=== PATIENT | female | born 1995 | race Hispanic/Latino ===

== ENCOUNTER 2017-11-12 15:12 | Inpatient (IN) | payer OTHER ==
[2017-11-13] MEDS ORDERED: MIDAZOLAM HCL 2 MG/2 ML INJ IV PRN (04:38)
[2017-11-13] MEDS ORDERED: METHYLERGONOVINE 0.2MG/ML AMP IM PRN (04:38)
[2017-11-13] MEDS ORDERED: PROMETHAZINE 25 MG/ML VIAL IM PRN (04:38)
[2017-11-13] MEDS ORDERED: BUTORPHANOL 1 MG/ML INJ IV PRN (04:38)
[2017-11-13] MEDS ORDERED: MEPERIDINE HCL 25 MG/0.5 ML IV PRN (04:38)
[2017-11-13] MEDS ORDERED: Ringers Lactate 1,000 ML IV PRN (04:38)
[2017-11-13] MEDS ORDERED: CARBOPROST TROME 250 MCG/ML IM PRN (04:38)
[2017-11-13 04:50] LABS: RPR Titer ND
[2017-11-13 04:56] LABS: Absolute Lymphocytes (CBC) 1.6 K/uL (0.7-4.9); Absolute Monocytes 0.5 K/uL (0.1-1.3); Absolute Neutrophil 4.7 K/uL (1.8-8.0); Basophils % 0.3 % (0-1.3); Eosinophils % 1.1 % (0-4.4); Hematocrit 31.6 % (36.0-45.0); Lymphocytes % 23.6 % (15.3-44.8); MCH 29.1 pg (27.0-35.0); MPV 8.5 fL (7.6-11.3); Monocytes % 6.9 % (3.3-12.3); RBC Red Blood Cell Count 3.67 M/uL (3.86-4.86)
[2017-11-13 05:00] VITALS: BMI 27.3
[2017-11-13] MEDS ORDERED: Ringers Lactate 1,000 ML IV SCH (05:00)
[2017-11-13] MEDS ORDERED: OXYTOCIN/LR 20 UNIT/1,000 ML BAG IV SCH ×2 (05:30→12:00)
[2017-11-13 06:17] LABS: Urine Appearance CLEAR; Urine Bilirubin NEGATIVE (NEG); Urine Blood NEGATIVE (NEG); Urine Color YELLOW; Urine Glucose NEGATIVE (NEG); Urine Protein NEGATIVE (NEG); Urine Specific Gravity >=1.030 (1.005-1.030); Urine pH 6.5 (5.0-7.0)
[2017-11-13 06:18] LABS: Urine Microscopic Reflex ORDER UMIC
[2017-11-13 06:40] LABS: Urine Bacteria 20-50 /HPF (<20); Urine Culture Reflex Order REFLEXED; Urine Mucus HEAVY /HPF (NONE SEEN); Urine RBC NONE SEEN /HPF (NONE SEEN)
[2017-11-13] MEDS ORDERED: LIDOCAINE 2% INJ, 20 mL 20 ML ONE (07:35)
[2017-11-13] MEDS ORDERED: BISACODYL 10 MG RECTAL SUPP RECT PRN (11:11)
[2017-11-13] MEDS ORDERED: ACETAMINOPHEN 500 MG TAB PO PRN (11:11)
[2017-11-13] MEDS ORDERED: DIPHENHYDRAMINE 25 MG TAB/CAP PO PRN (11:11)
[2017-11-13] MEDS ORDERED: DOCUSATE NA/SENNA CONC 1 TAB PO PRN (11:11)
[2017-11-13] MEDS ORDERED: Oxycodone HCl/Acetaminophen 1 TAB TAB PO PRN ×2 (11:11)
[2017-11-13] MEDS ORDERED: CEFAZOLIN/SWI 1gm 1 GM/10 ML SYR ONE (11:24)
--- NOTE | 2017-11-13 11:40 | PREOPHP ---
Date of Admission: 11/13/2017 This is a 22-year-old, 4, para 3, at 39 weeks and 4 days. The patient is now 4.5 cm, slightl y posterior, 70% effaced, aubrey regularly. FHTs normal, reactive. Rupture of membranes, clear fluid. The patient has delivered all of her other children naturally and she says she will do the s cathie this time. Anticipate rapid delivery once progress starts to be made. The patient requested tub al, was turned down by [facility]. We will try to get her connected with [facility] in the period. Talia fair has already signed her permit. Full admission and labor talk given. SILVA/SILVINA Voice ID: [id number]
--- NOTE | 2017-11-13 14:16 | PN ---
Subjective: Patient is aubrey regularly now. Baby looks good. Vital signs are all stable. Sh e is now about 6 cm, 70 to 80% effaced, vertex, still -1 station. Doing quite well with her breathin g techniques, anticipate more rapid progress soon. SILVA/SILVINA Voice ID: [id number] Report ID: [id number]
[2017-11-13 21:40] LABS: RPR (Rapid Plasma Reagin) NON-REACT (NON-REACT)
--- NOTE | 2017-11-13 21:55 | OP ---
Surgeon: Cruz Reina MD A 22-year-old, 4, para 3, 39 weeks 4 days. Two and half to 3 cm on admission. Rupture of me mbranes at 4 cm, clear fluid. Patient received 1 mg of Stadol during the labor, otherwise Lamaze shari athing techniques. Second stage of approximately 20-30 minutes. Spontaneous vaginal delivery of an estimated 8 pounds plus female, Apgars 9 and 9. Small first-degree laceration, somewhat irregular, r epaired with 2-0 chromic after local infiltration. Also 1-2 stitches of 3-0 chromic interrupted. Sc hultze delivery of the placenta, which was inspected and noted to be intact and normal. A 350 cc blo od loss. Rh positive, immune to Rubella. The patient had a bowel movement at the time of delivery a nd we will give her 1 g of Ancef for prophylaxis because she had to be catheterized also as the bladd er was obstructing delivery of the baby, tolerated all procedures well. Final Diagnoses: 1.Term intrauterine at 39 weeks 4 days. 2.Vaginal delivery. SILVA/SILVINA Voice ID: [id number] Report ID: [id number]
[2017-11-13] MEDS: IBUPROFEN 200 MG TAB PO PRN (22:00)
[2017-11-14] MEDS: IBUPROFEN 200 MG TAB PO PRN (04:15)
[2017-11-14] MEDS ORDERED: IBUPROFEN 400 MG TAB ONE (04:27)
[2017-11-14 15:03] VITALS: BP 110/66; TEMP 96.9
--- NOTE | 2017-11-15 05:54 | DS ---
Date of Discharge: 11/14/2017 A 22-year-old, 4, para 3, 39 weeks 4 days. Delivered a 7 pounds and 13 ounce female. Apgars 9 and 9. Small first-degree laceration repaired with 2-0 chromic and 3-0 chromic 1 to 2 interrupted sutures. Blood loss 350 cc. Placenta delivered Saie, inspected, noted to be intact and normal. Rh positive, immune to Rubella. Negative beta strep screen. The patient was catheterized during t he labor to help her push; therefore, she was given 1 g of Ancef . The patient is afebrile , ambulating and voiding lochia is normal. She has had all of her immunizations including Tdap durin g the . She will be dismissed later this morning to report back to my office in 6 weeks for followup, to report any temperature elevation of 100 degrees or greater, severe pain, heavy bleeding , or any other type of abnormalities. Dismissed with tramadol for analgesia, although she may not ge t the prescription filled. She may prefer to take Motrin instead. Final Diagnoses: 1.Term intrauterine at 39 weeks 4 days. 2.Vaginal delivery. SILVA/SILVINA Voice ID: [id number] Report ID: [id number]
[2017-11-15 20:18] LABS: HBsAG Nonreactive (Nonreactive)
== END 2017-11-14 14:00 | disposition home or self-care (01) | DRG 775 ==
LOC: 2ND-WC 11-13 03:56
PROVIDERS: ADMIT Specialist; ATTEND Specialist
PROC: 10907ZC Drainage of Amniotic Fluid, Therapeutic from Products of Conception, Via Natural or Artificial Opening (ICD-10-PCS; principal; 2017-11-13)
PROC: 10E0XZZ Delivery of Products of Conception, External Approach (ICD-10-PCS; 2017-11-13)
PROC: 0HQ9XZZ Repair Perineum Skin, External Approach (ICD-10-PCS; 2017-11-13)
DX: O70.0 First degree perineal laceration during delivery (principal); Z3A.39 39 weeks gestation of pregnancy; Z37.0 Single live birth; Z28.21 Immunization not carried out because of patient refusal
CPT/HCPCS: 36415; 81003; 81015; 85025; 86592; 86901; 87086; 87088; 87340; J0595; J0690; J2175; J2210; J2590

== ENCOUNTER 2018-05-31 01:24 | Emergency (ER) | payer OTHER, SELFPAY ==
[2018-05-31 02:04] LABS: Absolute Monocytes 0.6 K/uL (0.1-1.3); Absolute Neutrophil 8.2 K/uL (1.8-8.0); Basophils % 0.3 % (0-1.3); Eosinophils % 1.9 % (0-4.4); Lymphocytes % 9.6 % (15.3-44.8); MCH 31.2 pg (27.0-35.0); MCV 90.3 fL (80-100); MPV 8.1 fL (7.6-11.3); Monocytes % 5.9 % (3.3-12.3); RBC Red Blood Cell Count 4.21 M/uL (3.86-4.86)
[2018-05-31] MEDS ORDERED: ONDANSETRON 4 MG/2 ML VIAL ONE (02:08)
[2018-05-31] MEDS ORDERED: MORPHINE 4 MG/ML SYR ONE (02:08)
[2018-05-31 02:16] LABS: Urine Bacteria >50 /HPF (<20); Urine Culture Reflex Order REFLEXED; Urine Mucus HEAVY /HPF (NONE SEEN); Urine RBC NONE SEEN /HPF (NONE SEEN)
[2018-05-31 02:19] LABS: Albumin 3.9 g/dL (3.4-5.0); Bilirubin Direct 0.2 mg/dL (0-0.2); Bilirubin Total 0.5 mg/dL (0.2-1.0); Potassium 3.5 mmol/L (3.5-5.1); Protein, Total 7.3 g/dL (6.4-8.2)
[2018-05-31 03:52] LABS: Urine Blood NEGATIVE (NEG); Urine Glucose NEGATIVE (NEG); Urine Protein 1+ (NEG); Urine Specific Gravity 1.015 (1.005-1.030); Urine pH 8.5 (5.0-7.0)
[2018-05-31] MEDS ORDERED: KETOROLAC 30 MG/ML INJ ONE (04:36)
--- NOTE | 2018-05-31 04:55 | ER ---
Nurse's Notes [facility] Name: Anisa Mack Age: 22 yrs Sex: Female : 1995 Arrival Date: 05/31/2018 Time: 01:28 Bed 7 Private MD: Diagnosis: Acute Right lower quadrant pain;right side corpus luteum cyst Presentation: 05/31 01:35 Presenting complaint: Patient states: she is having right lower abdominal pain since bb approx 1999 last night denies vomiting or diarrhea, pain is constant and is now 10/10. Transition of care: patient was not received from another setting of care. Onset of symptoms was May 30, 2018. Risk Assessment: Do you want to hurt yourself or someone else? Patient reports no desire to harm self or others. Initial Sepsis Screen: Does the patient meet any 2 criteria? No. Patient's initial sepsis screen is negative. Does the patient have a suspected source of infection? No. Patient's initial sepsis screen is negative. Care prior to arrival: None. 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 - Social history:: Smoking status: Patient/guardian denies using tobacco, Patient uses alcohol, occasionally. Patient/guardian denies using street drugs. - Ebola Screening: : No symptoms or risks identified at this time. Screenin:08 Abuse screen: Denies threats or abuse. Denies injuries from another. Nutritional ak1 screening: No deficits noted. Tuberculosis screening: No symptoms or risk factors identified. Fall Risk None identified. Assessment: 02:08 General: Appears uncomfortable, slender, Behavior is calm, cooperative. Pain: Complains ak1 of pain in right lower quadrant. Neuro: No deficits noted. Cardiovascular: No deficits noted. Respiratory: No deficits noted. GI: Abdomen is flat, non-distended, Bowel sounds present X 4 quads. Abdomen is tender to palpation in right lower quadrant Guarding noted in right lower quadrant. : No signs and/or symptoms were reported regarding the genitourinary system. EENT: No signs and/or symptoms were reported regarding the EENT system. Derm: No signs and/or symptoms reported regarding the dermatologic system. Musculoskeletal: No signs and/or symptoms reported regarding the musculoskeletal system. 03:15 Reassessment: Patient appears in no apparent distress at this time. Patient and/or ak1 family updated on plan of care and expected duration. Pain level reassessed. pt waiting for CT results. pt waiting for US. 04:05 Reassessment: Patient appears in no apparent distress at this time. Patient and/or ak1 family updated on plan of care and expected duration. Pain level reassessed. pt returned from US. Vital Signs: 01:37 BP 121 / 69; Pulse 107; Resp 18 S; Temp 98.9(O); Pulse Ox 100% on R/A; Weight 57.61 kg bb (R); Height 5 ft. 3 in. (160.02 cm) (R); Pain 10/10; 02:21 BP 116 / 70; Pulse 98; Resp 18; Pulse Ox 99% on R/A; ak1 04:39 BP 97 / 51; Pulse 85; Resp 16; Pulse Ox 97% on R/A; ak1 01:37 Body Mass Index 22.50 (57.61 kg, 160.02 cm) ED Course: 01:28 Patient arrived in ED. ag3 01:29 Paul Loredo PA is PHCP. cp 01:29 Nils Childs MD is Attending Physician. cp 01:37 Triage completed. bb 01:37 Arm band placed on Patient placed in an exam room, on a stretcher, on pulse oximetry. bb Family accompanied patient. 01:49 Rosa Fontenot, RN is Primary Nurse. ak1 01:54 Inserted saline lock: 20 gauge in right antecubital area, using aseptic technique. jd3 Blood collected. 02:09 Radiology exam delayed due to lab results not completed at this time. (BUN/Creatinine). jg6 02:10 Patient has correct armband on for positive identification. Bed in low position. Call ak1 light in reach. Side rails up X 1. Pulse ox on. NIBP on. 02:[address] via wheelchair. kw1 02:47 CT Abd/Pelvis - W/Contrast In Process Unspecified. EDMS 02:48 CT completed. Patient tolerated procedure well. Patient moved back from CT. kw1 03:56 US Transvaginal Study (Probe) In Process Unspecified. EDMS 03:58 Patient moved back from ultrasound. zina 04:32 No provider procedures requiring assistance completed. ak1 05:03 IV discontinued, intact, bleeding controlled, No redness/swelling at site. Pressure ak1 dressing applied. Administered Medications: 02:07 Drug: Zofran 4 mg Route: IVP; Site: right antecubital; jd3 04:32 Follow up: Response: No adverse reaction ak1 02:09 Drug: morphine 2 mg Route: IVP; Site: right antecubital; jd3 04:31 Follow up: Response: No adverse reaction ak1 04:31 Drug: TORadol 30 mg Route: IVP; Site: right antecubital; ak1 04:55 Follow up: Response: No adverse reaction ak1 05:02 Drug: Rocephin - (cefTRIAXone) 1 grams Route: IVPB; Infused Over: 30 mins; Site: right ak1 antecubital; 05:02 Follow up: IV Status: Completed infusion ak1 Outcome: 04:55 Discharge ordered by . ernie 05:03 Discharged to home ambulatory, with family. ak1 05:03 Condition: good 05:05 Discharge instructions given to patient, family, Instructed on discharge instructions, ak1 follow up and referral plans. medication usage, Demonstrated understanding of instructions, follow-up care, medications, Prescriptions given X 2. 05:08 Patient left the ED. ak1 Signatures: Dispatcher [employer] EDChar Ramey RN RN bb Krenek, Amber, RN RN mc1 Paul Loredo PA PA cp Dupre, Jacques jd Appiah, William, MD MD wa Davies, Jonathon, RN RN Kajal Castillo1 Nichol Apodaca6 Patricia Millan3
--- NOTE | 2018-05-31 04:56 | EDPHYS ---
Physician Documentation [facility] Name: Anisa Mack Age: 22 yrs Sex: Female : 1995 Arrival Date: 05/31/2018 Time: 01:28 Bed 7 Private MD: ED Physician Nils Childs HPI: 05/31 01:38 This 22 yrs old Female presents to ER via Ambulatory with complaints of cp Abdominal Pain. 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 - Social history:: Smoking status: Patient/guardian denies using tobacco, Patient uses alcohol, occasionally. Patient/guardian denies using street drugs. - Ebola Screening: : No symptoms or risks identified at this time. ROS: 01:45 Constitutional: Negative for body aches, chills, fever, poor PO intake. cp 01:45 Eyes: Negative for injury, pain, redness, and discharge. cp 01:45 ENT: Negative for drainage from ear(s), ear pain, sore throat, difficulty swallowing, difficulty handling secretions. 01:45 Cardiovascular: Negative for chest pain, palpitations. 01:45 Respiratory: Negative for cough, shortness of breath, wheezing. 01:45 Abdomen/GI: Positive for abdominal pain, of the right lower quadrant, Negative for vomiting, diarrhea, constipation, black/tarry stool, rectal bleeding. 01:45 Back: Negative for pain at rest, pain with movement. 01:45 : Negative for urinary symptoms, vaginal bleeding, vaginal discharge. 01:45 Skin: Negative for cellulitis, rash. 01:45 All other systems are negative. Exam: 01:50 Constitutional: The patient appears in no acute distress, alert, awake, non-toxic, well cp developed, well nourished, uncomfortable. 01:50 Head/Face: Normocephalic, atraumatic. cp 01:50 Eyes: Periorbital structures: appear normal, Conjunctiva: normal, no exudate, no injection, Sclera: no appreciated abnormality, Lids and lashes: appear normal, bilaterally. 01:50 ENT: External ear(s): are unremarkable, Nose: is normal, Mouth: Lips: moist, Oral mucosa: pink and intact, moist, Posterior pharynx: is normal, airway is patent, no erythema, no exudate, Voice: is normal. 01:50 Neck: ROM/movement: is normal, is supple, without pain, no range of motions limitations, no nuchal rigidity. 01:50 Chest/axilla: Inspection: normal, Palpation: is normal, no crepitus, no tenderness. 01:50 Cardiovascular: Rate: tachycardic, Rhythm: regular. 01:50 Respiratory: the patient does not display signs of respiratory distress, Respirations: normal, no use of accessory muscles, no retractions, no splinting, no tachypnea, labored breathing, is not present, Breath sounds: are clear throughout, no decreased breath sounds, no stridor, no wheezing. 01:50 Abdomen/GI: Inspection: abdomen appears normal, Bowel sounds: active, all quadrants, Palpation: soft, in all quadrants, severe abdominal tenderness, in the right lower quadrant, voluntary guarding, is elicited in the right lower quadrant. 01:50 Back: CVA tenderness, is absent. 01:50 Skin: cellulitis, is not appreciated, no rash present. 01:50 Neuro: Orientation: to person, place \T\ time. Mentation: is normal, Cerebellar function: is grossly normal, Motor: moves all fours, strength is normal. Vital Signs: 01:37 BP 121 / 69; Pulse 107; Resp 18 S; Temp 98.9(O); Pulse Ox 100% on R/A; Weight 57.61 kg bb (R); Height 5 ft. 3 in. (160.02 cm) (R); Pain 10/10; 02:21 BP 116 / 70; Pulse 98; Resp 18; Pulse Ox 99% on R/A; ak1 04:39 BP 97 / 51; Pulse 85; Resp 16; Pulse Ox 97% on R/A; ak1 01:37 Body Mass Index 22.50 (57.61 kg, 160.02 cm) bb MDM: 01:29 Patient medically screened. cp 02:00 Differential diagnosis: appendicitis, Ectopic , Ovarian Torsion, Pelvic cp Inflammatory Disease, Pyelonephritis, Tubal Ovarian Abcess, Ureterolithiasis, urinary tract infection. 05/31 01:41 Order name: Basic Metabolic Panel; Complete Time: 04:26 cp 05/31 01:41 Order name: CBC with Diff; Complete Time: 04:26 cp 05/31 01:41 Order name: Creatinine for Radiology; Complete Time: 04:26 cp 05/31 01:41 Order name: Hepatic Function; Complete Time: 04:26 cp 05/31 01:41 Order name: Lipase; Complete Time: 04:26 cp 05/31 01:41 Order name: Urine Microscopic Only; Complete Time: 04:26 cp 05/31 01:41 Order name: US Transvaginal Study (Probe) cp 05/31 01:49 Order name: CT Abd/Pelvis - W/Contrast cp 05/31 02:17 Order name: Urine Culture EDMS 05/31 02:30 Order name: Urine Dipstick--Ancillary (enter results); Complete Time: 04:26 ms 05/31 02:30 Order name: Urine --Ancillary (enter results); Complete Time: 04:26 ms 05/31 01:41 Order name: IV Saline Lock; Complete Time: 01:58 cp 05/31 01:41 Order name: Labs collected and sent; Complete Time: 01:58 cp 05/31 01:41 Order name: Urine Dipstick-Ancillary (obtain specimen); Complete Time: 02:08 cp 05/31 01:41 Order name: Urine Test (obtain specimen); Complete Time: 02:08 cp Administered Medications: 02:07 Drug: Zofran 4 mg Route: IVP; Site: right antecubital; jd3 04:32 Follow up: Response: No adverse reaction ak1 02:09 Drug: morphine 2 mg Route: IVP; Site: right antecubital; jd3 04:31 Follow up: Response: No adverse reaction ak1 04:31 Drug: TORadol 30 mg Route: IVP; Site: right antecubital; ak1 04:55 Follow up: Response: No adverse reaction ak1 05:02 Drug: Rocephin - (cefTRIAXone) 1 grams Route: IVPB; Infused Over: 30 mins; Site: right ak1 antecubital; 05:02 Follow up: IV Status: Completed infusion ak1 Disposition: 14:49 Co-signature as Attending Physician, Nils Childs MD I agree with the assessment and wa plan of care. Disposition: 05/31/18 04:55 Discharged to Home. Impression: Acute Right lower quadrant pain, right side corpus luteum cyst. - Condition is Stable. - Discharge Instructions: Abdominal Pain, Adult, Athf-fe-Mxyq, Ovarian Cyst, [id number]-Pllw. - Prescriptions for Ibuprofen 600 mg Oral Tablet - take 1 tablet by ORAL route every 6 hours As needed take with food; 30 tablet. senna 8.6 mg Oral tablet - take 2 tablet by ORAL route once daily for constipation; 8 tablet. - Medication Reconciliation Form, Thank You Letter, Antibiotic Education, Prescription Opioid Use form. - Follow up: Private Physician; When: 2 - 3 days; Reason: Recheck today's complaints. - Problem is new. - Symptoms have improved. - Notes: follow up with your doctor for reassessment if worsening. take medication as prescribed Signatures: Dispatcher [employer] EDMS Char Malave RN RN bb Krenek, Amber, RN RN ak1 Paul Loredo PA PA Nils Randall MD MD wa Davies, Jonathon, RN RN jd3 Corrections: (The following items were deleted from the chart) 02:34 05/30 01:45 Constitutional: Negative for body aches, chills, fever, poor PO intake, cp cp 05/31 02:34 05/30 01:45 Eyes: Negative for injury, pain, redness, and discharge, cp cp 05/31 02:34 05/30 01:45 ENT: Negative for drainage from ear(s), ear pain, sore throat, difficulty cp swallowing, difficulty handling secretions, cp 05/31 02:34 05/30 01:45 Cardiovascular: Negative for chest pain, edema, palpitations, cp cp 05/31 02:34 05/30 01:45 Respiratory: Negative for cough, shortness of breath, wheezing, cp cp 05/31 02:34 10 01:45 Abdomen/GI: Positive for abdominal pain, Negative for vomiting, diarrhea, cp constipation, black/tarry stool, rectal bleeding, cp 05/31 02:34 05/30 01:45 : Negative for hematuria, flank pain, vaginal bleeding, vaginal cp discharge, cp 05/31 02:34 05/30 01:45 Skin: Negative for cellulitis, rash, cp cp 05/31 05:08 04:55 05/31/2018 04:55 Discharged to Home. Impression: Acute Right lower quadrant pain; ak1 right side corpus luteum cyst. Condition is Stable. Forms are Medication Reconciliation Form, Thank You Letter, Antibiotic Education, Prescription Opioid Use. Follow up: Private Physician; When: 2 - 3 days; Reason: Recheck today's complaints. Problem is new. Symptoms have improved. wa
[2018-05-31] MEDS ORDERED: CEFTRIAXONE/SWI 1gm 1 GM/10 ML SYR ONE (05:05)
[2018-05-31 05:12] VITALS: TEMP 98.9
[2018-05-31 05:14] VITALS: BP 97/51; O2SAT 97
--- NOTE | 2018-05-31 08:54 | RAD REPORT ---
EXAM DESCRIPTION: CT - Abdomen Pelvis W Contrast - 05/31/2018 6:48 am CLINICAL HISTORY: Abdominal pain, right lower quadrant pain A preliminary report was provided at the time of the study and reviewed prior to final report. COMPARISON: CT study October 2011 TECHNIQUE: Biphasic, helical CT imaging of the abdomen and pelvis was performed following 100 ml non -ionic IV contrast. Oral contrast was given. All CT scans are performed using dose optimization technique as appropriate and may include automated exposure control or mA/KV adjustment according to patient size. FINDINGS: No suspicious findings in the lung bases. The liver, spleen, and pancreas show no suspicious findings. Gallbladder and biliary tree are also wi thout suspicious finding. Symmetric renal function is seen with no hydronephrosis or suspicious renal mass. Subtle heterogeneit y of the renal parenchyma is a symmetric pattern very unlikely to be pyelonephritis. No perinephric s tranding. No urinary bladder abnormality. Assessment is limited due to contracted state. No acute uterine finding. Left ovary is unremarkable. Involuting right ovarian cyst is present. Minim al free fluid in the right adnexa and cul-de-sac. This is likely the recent ovulation. No dilated bowel loops or bowel wall thickening. Normal appendix is identified. No acute finding of t he GI tract identified. There is moderate stool volume in the right-side and transverse colon. No jazlyn e air, free fluid or inflammatory stranding. No hernia, mass or bulky lymphadenopathy. No adrenal ab normality. No suspicious bony findings. IMPRESSION: Involuting right ovarian cyst with a small amount of free fluid in the cul-de-sac and ri ght adnexa. Patient pain pattern may be related to Mittelschmerz. No appendicitis findings. No acute GI tract seen. No acute finding and the gallbladder shows no lee spicious finding.
--- NOTE | 2018-05-31 08:56 | RAD REPORT ---
EXAM DESCRIPTION: US - Transvaginal Study Probe - 05/31/2018 3:56 am CLINICAL HISTORY: Right lower quadrant pain, abnormal CT study Preliminary findings provided at the time of the study. COMPARISON: CT study May 31, ultrasound study 2011 TECHNIQUE: Endovaginal sonography was performed. FINDINGS: Uterine size is normal. No myometrial mass identified. Endometrial stripe reaches 14-16 mm . No discrete endometrial mass or polyp. Small amount of free fluid is seen in the cul-de-sac and rig ht adnexa. A partially collapsed or involuting right ovarian cyst is identifiable. Both ovaries show additional small follicles. Doppler evaluation shows normal blood flow within the ovarian stroma. No fallopian tube dilatation or worrisome adnexal finding. IMPRESSION: Partially involuted right ovarian cyst and free fluid in the right adnexa and cul-de-sac . This is most likely fluid related to recent ovulation. No worrisome uterine, ovarian or adnexal finding otherwise noted.
== END 2018-05-31 05:08 | disposition home or self-care (01) ==
LOC: ER 01:24
DX: N83.11 Corpus luteum cyst of right ovary (principal)
CPT/HCPCS: 36415; 74177; 76830; 80048; 80076; 81003; 81015; 81025; 83690; 85025; 87086; 87088; 96374; 96375; 99284; J0696; J2405; Q9967

== ENCOUNTER 2020-11-03 18:47 | Emergency (ER) | payer SELFPAY ==
[2020-11-03] MEDS ORDERED: ACETAMINOPHEN 500 MG TAB ONE (19:19)
[2020-11-03 20:44] LABS: SARS-COV-2 RT PCR POSITIVE (NEGATIVE)
--- NOTE | 2020-11-03 20:45 | ER ---
Nurse's Notes [facility] Name: Anisa Mack Age: 25 yrs Sex: Female : 1995 Arrival Date: 11/03/2020 Time: 18:50 Bed 19 Private MD: Diagnosis: Coronavirus infection, unspecified Presentation: 11/03 18:55 Chief complaint: Patient states: Fever at 1530 today. body aches, chills. Denies N/V/D, ca1 Denies cough and congestion. Ibuprofen last taken at 1730. Coronavirus screen: Client denies travel out of the [place] in the last 14 days. chills, fever, muscle pain, Client presents with at least one sign or symptom that may indicate coronavirus-19. Standard/surgical mask placed on the client. Provider contacted for isolation considerations. Ebola Screen: Patient negative for fever greater than or equal to 101.5 degrees Fahrenheit, and additional compatible Ebola Virus Disease symptoms Patient denies exposure to infectious person. Patient denies travel to an Ebola-affected area in the 21 days before illness onset. No symptoms or risks identified at this time. Initial Sepsis Screen: Does the patient meet any 2 criteria? No. Patient's initial sepsis screen is negative. Does the patient have a suspected source of infection? No. Patient's initial sepsis screen is negative. Risk Assessment: Do you want to hurt yourself or someone else? Patient reports no desire to harm self or others. Onset of symptoms was November 03, 2020. 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 - Social history:: Smoking status: Patient denies any tobacco usage or history of. Screenin:36 Abuse screen: Denies threats or abuse. Nutritional screening: No deficits noted. em Tuberculosis screening: No symptoms or risk factors identified. Fall Risk None identified. Assessment: 18:30 General: Appears in no apparent distress. uncomfortable, Behavior is calm, cooperative, em Reports fatigue for 0-12 hours. Pain: Complains of pain in body aches. Neuro: Level of Consciousness is awake, alert, obeys commands, Oriented to person, place, time, situation. Cardiovascular: Capillary refill < 3 seconds Patient's skin is warm and dry. Respiratory: Airway is patent Respiratory effort is even, unlabored, Respiratory pattern is regular, symmetrical, Denies shortness of breath. GI: Patient currently denies nausea, vomiting. Derm: Skin is intact, is healthy with good turgor, Skin is pink, warm \T\ dry. Musculoskeletal: Capillary refill < 3 seconds, Range of motion: intact in all extremities. Vital Signs: 18:55 BP 132 / 87; Pulse 112; Resp 16 S; Temp 101.1(TE); Pulse Ox 100% on R/A; Weight 57.15 ca1 kg (R); Height 5 ft. 3 in. (160.02 cm) (R); 18:55 Body Mass Index 22.32 (57.15 kg, 160.02 cm) ca1 ED Course: 18:50 Patient arrived in ED. ds1 18:54 Manju Mcguire FNP-C is [facility]. kb 18:54 Eric Donis MD is Attending Physician. kb 18:58 Triage completed. ca1 18:58 Arm band placed on right wrist. ca1 19:29 Teto Galeana, RN is Primary Nurse. em 19:36 Patient has correct armband on for positive identification. em 21:03 No provider procedures requiring assistance completed. Patient did not have IV access em during this emergency room visit. Administered Medications: 19:04 Drug: Tylenol 1000 mg Route: PO; ca1 19:04 Not Given (Duplicate Order): Tylenol 1000 mg PO once ca1 Outcome: 20:45 Discharge ordered by . kb 21:01 Patient left the ED. mw2 21:03 Discharged to home ambulatory. em 21:03 Condition: stable 21:03 Discharge instructions given to patient, Instructed on discharge instructions, follow up and referral plans. Demonstrated understanding of instructions, follow-up care. Signatures: Manju Mcguire FNP-C FNP-Teto Villa RN RN em Tara Milligan ds1 James Rosa mw2 Maru Moore RN RN ca1 Corrections: (The following items were deleted from the chart) 18:59 18:55 Acuity: JOSE MIGUEL 4 ca1 ca1
--- NOTE | 2020-11-03 20:45 | EDPHYS ---
Physician Documentation [facility] Name: Ainsa Mack Age: 25 yrs Sex: Female : 1995 Arrival Date: 11/03/2020 Time: 18:50 Bed 19 Private MD: ED Physician Eric Donis HPI: 11/03 22:28 This 25 yrs old Female presents to ER via Ambulatory with complaints of Fever, kb Body Aches. 22:28 The patient reports fever, that was measured at 102 degrees Fahrenheit, with an kb emergency department temperature of 101.1 degrees Fahrenheit. Onset: The symptoms/episode began/occurred today, at 15:30. Modifying factors: there are no obvious modifying factors. Associated signs and symptoms: Pertinent positives: fever, chills, bodyaches. Severity of symptoms: At their worst the symptoms were moderate in the emergency department the symptoms are unchanged. The patient has not experienced similar symptoms in the past. The patient has not recently seen a physician. Pt reports fever, chills and bodyaches that started at 1530 today. 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 - Social history:: Smoking status: Patient denies any tobacco usage or history of. ROS: 22:30 Cardiovascular: Negative for chest pain, palpitations, and edema, Respiratory: Negative kb for shortness of breath, cough, wheezing, and pleuritic chest pain, Abdomen/GI: Negative for abdominal pain, nausea, vomiting, diarrhea, and constipation, MS/Extremity: Negative for injury and deformity, Skin: Negative for injury, rash, and discoloration, Neuro: Negative for headache, weakness, numbness, tingling, and seizure. 22:30 Constitutional: Positive for body aches, chills, fever. Exam: 22:30 Constitutional: This is a well developed, well nourished patient who is awake, alert, kb and in no acute distress. Head/Face: Normocephalic, atraumatic. Cardiovascular: Regular rate and rhythm with a normal S1 and S2. No gallops, murmurs, or rubs. No pulse deficits. Respiratory: Respirations even and unlabored. No increased work of breathing, no retractions or nasal flaring. Abdomen/GI: Soft, non-tender. No distention Skin: Warm, dry with normal turgor. Normal color. MS/ Extremity: Pulses equal, no cyanosis. Neurovascular intact. Full, normal range of motion. Neuro: Awake and alert, GCS 15, oriented to person, place, time, and situation. Moves all extremities. Normal gait. Vital Signs: 18:55 BP 132 / 87; Pulse 112; Resp 16 S; Temp 101.1(TE); Pulse Ox 100% on R/A; Weight 57.15 ca1 kg (R); Height 5 ft. 3 in. (160.02 cm) (R); 18:55 Body Mass Index 22.32 (57.15 kg, 160.02 cm) ca1 MDM: 18:54 Patient medically screened. kb 22:28 Data reviewed: vital signs, nurses notes. Data interpreted: Pulse oximetry: on room air kb is 100 %. Interpretation: normal. Counseling: I had a detailed discussion with the patient and/or guardian regarding: the historical points, exam findings, and any diagnostic results supporting the discharge/admit diagnosis, lab results, the need for outpatient follow up, a family practitioner, to return to the emergency department if symptoms worsen or persist or if there are any questions or concerns that arise at home. 11/03 20:44 Order name: COVID-19/FLU A+B; Complete Time: 20:44 EDMS Administered Medications: 19:04 Drug: Tylenol 1000 mg Route: PO; ca1 19:04 Not Given (Duplicate Order): Tylenol 1000 mg PO once ca1 Disposition: 11/04 19:33 Co-signature as Attending Physician, Eric Donis MD I agree with the assessment and tw4 plan of care. Disposition: 11/03/20 20:45 Discharged to Home. Impression: Coronavirus infection, unspecified. - Condition is Stable. - Discharge Instructions: Viral Respiratory Infection, [id number], COVID-19. - Medication Reconciliation Form, Thank You Letter, Antibiotic Education, Prescription Opioid Use form. - Follow up: Emergency Department; When: As needed; Reason: Worsening of condition. Follow up: Private Physician; When: 2 - 3 days; Reason: Recheck today's complaints, Continuance of care, Re-evaluation by your physician. Signatures: Dispatcher [employer] EDNV Manju Mcguire, JASBIR TARIQ-Eric Lorenzana MD MD tw4 James Rosa mw2 Maru Moore RN RN ca1 Corrections: (The following items were deleted from the chart) 11/03 19:05 19:05 Influenza Screen (A \T\ B)+BA.LAB.BRZ ordered. EDMS EDMS 19:05 19:05 CORONAVIRUS+MR.LAB.BRZ ordered. EDMS EDMS 19:44 19:05 Influenza Screen (A \T\ B)+BA.LAB.BRZ ordered. EDMS EDMS 19:44 19:05 CORONAVIRUS+MR.LAB.BRZ ordered. EDNV EDMS 21:01 20:45 11/03/2020 20:45 Discharged to Home. Impression: Coronavirus infection, mw2 unspecified. Condition is Stable. Forms are Medication Reconciliation Form, Thank You Letter, Antibiotic Education, Prescription Opioid Use. Follow up: Emergency Department; When: As needed; Reason: Worsening of condition. Follow up: Private Physician; When: 2 - 3 days; Reason: Recheck today's complaints, Continuance of care, Re-evaluation by your physician. kb
[2020-11-03 21:09] VITALS: BP 132/87; TEMP 101.1; O2SAT 100
== END 2020-11-03 21:01 | disposition home or self-care (01) ==
LOC: ER 18:47
DX: U07.1 COVID-19 (principal)
CPT/HCPCS: 0240U; 99283

== ENCOUNTER 2021-09-06 18:41 | Emergency (ER) | payer SELFPAY ==
[2021-09-06 19:12] LABS: Urine Blood 2+ (Negative); Urine Glucose Negative (Negative); Urine Protein 1+ (Negative); Urine Specific Gravity 1.025 (1.005-1.030); Urine pH 6.5 (5.0-7.0)
[2021-09-06 19:15] LABS: Absolute Lymphocytes (CBC) 1.7 K/uL (0.7-4.9); Hematocrit 39.3 % (36.0-45.0); Lymphocytes % 20.2 % (15.3-44.8); MPV 7.8 fL (7.6-11.3); RBC Red Blood Cell Count 4.06 M/uL (3.86-4.86)
[2021-09-06 19:31] LABS: Urine Bacteria 20-50 /HPF (<20)
[2021-09-06 20:26] LABS: ALT/SGPT 16 U/L (12-78); AST/SGOT 10 U/L (15-37); Albumin 4.1 g/dL (3.4-5.0); Alkaline Phosphatase 59 U/L (45-117); BUN Blood Urea Nitrogen 18 mg/dL (7-18); Bicarbonate 25 mmol/L (21-32); Bilirubin Direct 0.1 mg/dL (0-0.2); Bilirubin Total 0.4 mg/dL (0.2-1.0); Glucose Level 92 mg/dL (74-106); Lipase 88 U/L (73-393); Potassium 3.7 mmol/L (3.5-5.1); Sodium Level 136 mmol/L (136-145)
--- NOTE | 2021-09-06 20:30 | RAD REPORT ---
EXAM DESCRIPTION: CT - Stone Protocol - 09/06/2021 8:18 pm CLINICAL HISTORY: Flank pain. Flank pain;Abd pain COMPARISON: Abdomen Pelvis W Contrast dated 05/31/2018 TECHNIQUE: Axial images were obtained without oral or IV contrast. Lack of contrast limits solid org an and vascular assessment. The [id number] spans the entirety of the system partially obscuring uppermost abdomen and lung bases. Coronal reformatted images were obtained and reviewed. All CT scans are performed using dose optimization technique as appropriate and may include automated exposure control or mA/KV adjustment according to patient size. FINDINGS: The lower lung helton are clear. Imaged portions of the liver and spleen show no suspicious findings on non-contrast imaging. The panc reas and adrenal glands are normal. No pathologic lymphadenopathy in the abdomen or pelvis. No urinary tract stones or obstructive uropathy. No bowel obstruction, free air, free fluid or abscess. Normal appendix noted. Small fat containing um bilical hernia. No significant bony abnormality. IMPRESSION: No urinary tract stones or obstructive uropathy.
[2021-09-06] MEDS ORDERED: ONDANSETRON 4 MG/2 ML VIAL ONE (20:55)
[2021-09-06] MEDS ORDERED: NA CHLORIDE 0.9% 50 ML ONE (20:55)
[2021-09-06] MEDS ORDERED: KETOROLAC 30 MG/ML INJ ONE (20:55)
[2021-09-06] MEDS ORDERED: NA CHLORIDE 0.9% 1,000 ML ONE (20:55)
[2021-09-06] MEDS ORDERED: CEFTRIAXONE 1000 MG/VIAL ONE (20:55)
--- NOTE | 2021-09-06 21:26 | ER ---
Nurse's Notes [facility] Name: Anisa Mack Age: 25 yrs Sex: Female : 1995 Arrival Date: 09/06/2021 Time: 18:44 Bed 11 Private MD: Diagnosis: UTI/ Urinary tract infection, site not specified Presentation: 09/06 18:56 Chief complaint: Patient states: "right flank pain that radiates to the front. burning jd3 with urination.". Coronavirus screen: At this time, the client does not indicate any symptoms associated with coronavirus-19. Ebola Screen: Patient negative for fever greater than or equal to 101.5 degrees Fahrenheit, and additional compatible Ebola Virus Disease symptoms. Initial Sepsis Screen: Does the patient meet any 2 criteria? No. Patient's initial sepsis screen is negative. Does the patient have a suspected source of infection? No. Patient's initial sepsis screen is negative. Risk Assessment: Do you want to hurt yourself or someone else? Patient reports no desire to harm self or others. Onset of symptoms was September 06, 2021. 18:56 Method Of Arrival: Ambulatory jd3 18:56 Acuity: JOSE MIGUEL 3 jd3 Triage Assessment: 18:58 Pain: Complains of pain in right flank. GI: Abdomen is non-distended, Abd is soft and jd3 non tender X 4 quads. : Reports pain in right flank(s). 22:07 General: Appears in no apparent distress. Behavior is appropriate for age. 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 - Social history:: Smoking status: Patient denies any tobacco usage or history of. Screenin:07 Abuse screen: Denies threats or abuse. Denies injuries from another. Nutritional 5 screening: No deficits noted. Tuberculosis screening: No symptoms or risk factors identified. Fall Risk None identified. Assessment: 22:07 GI: Bowel sounds present X 4 quads. sm5 Vital Signs: 18:58 BP 123 / 93; Pulse 81; Resp 17 S; Temp 98.9(TE); Pulse Ox 100% on R/A; Weight 57.15 kg jd3 (R); Height 5 ft. 3 in. (160.02 cm) (R); Pain 10/10; 18:58 Body Mass Index 22.32 (57.15 kg, 160.02 cm) jd3 ED Course: 18:44 Patient arrived in ED. ds1 18:44 Manju Mcguire FNP-C is [facility]. kb 18:44 Girish Herzog MD is Attending Physician. kb 18:57 Triage completed. jd3 18:58 Arm band placed on. jd3 19:05 Inserted saline lock: 20 gauge in right antecubital area, using aseptic technique. sm5 Blood collected. 19:11 Basic Metabolic Panel Sent. sm5 19:11 CBC with Diff Sent. sm5 19:11 Hepatic Function Sent. sm5 19:11 Lipase Sent. sm5 20:18 CT Stone Protocol In Process Unspecified. EDMS 20:49 Christine Velez, RN is Primary Nurse. sm5 22:07 Patient has correct armband on for positive identification. Call light in reach. sm5 22:07 No provider procedures requiring assistance completed. IV discontinued, intact, sm5 bleeding controlled, No redness/swelling at site. Pressure dressing applied. Administered Medications: 21:02 Drug: NS 0.9% 1000 ml Route: IV; Rate: 1000 ml; Site: left antecubital; 5 21:02 Drug: Ketorolac 15 mg Route: IVP; Site: left antecubital; 5 21:02 Drug: Rocephin (cefTRIAXone) 1 grams Route: IV; Rate: calculated rate; Site: left sm5 antecubital; 21:02 Drug: Zofran (Ondansetron) 4 mg Route: IVP; Site: left antecubital; 5 Outcome: 21:25 Discharge ordered by . kb 22:07 Discharged to home ambulatory, with friend. sm5 22:07 Condition: good 22:07 Discharge instructions given to patient, Instructed on discharge instructions, follow up and referral plans. medication usage, Demonstrated understanding of instructions, follow-up care, medications, Prescriptions given X 1. 22:07 Patient left the ED. 5 Addendum: 09/09/2021 07:29 Addendum: Culture Results: Positive urine culture. No further action required. Bacteria e b sensitive to prescribed antibiotic. Signatures: Dispatcher [employer] Manju Ritter, JASBIR JAMILP-Tara Escobedo ds1 Anderson Dueñas RN RN jd3 Sharyn Lyle Sarah, RN RN sm5
--- NOTE | 2021-09-06 21:26 | EDPHYS ---
Physician Documentation [facility] Name: Anisa Mack Age: 25 yrs Sex: Female : 1995 Arrival Date: 09/06/2021 Time: 18:44 Bed 11 Private MD: ED Physician Girish Herzog HPI: 09/06 20:22 This 25 yrs old Female presents to ER via Ambulatory with complaints of kb Abdominal Pain, Back Pain. 20:23 The patient complains of pain in the right flank. The pain radiates to the right lower kb quadrant. Onset: The symptoms/episode began/occurred today. Modifying factors: The symptoms are alleviated by nothing. the symptoms are aggravated by nothing. Associated signs and symptoms: Pertinent positives: dysuria, nausea, Pertinent negatives: diarrhea, dizziness, fever, urinary frequency, headache, hematuria, pain radiating to the lower extremities, vomiting. Severity of pain: At its worst the pain was moderate in the emergency department the pain is unchanged. The patient has not experienced similar symptoms in the past. The patient has not recently seen a physician. 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 - Social history:: Smoking status: Patient denies any tobacco usage or history of. ROS: 20:21 Constitutional: Negative for fever, chills, and weight loss. kb 20:21 Abdomen/GI: Positive for abdominal pain, nausea. 20:21 Back: Positive for flank pain, on the right. 20:21 : Positive for burning with urination. 20:21 All other systems are negative. Exam: 20:21 Constitutional: This is a well developed, well nourished patient who is awake, alert, kb and in no acute distress. Head/Face: Normocephalic, atraumatic. ENT: Moist Mucous membranes Cardiovascular: Regular rate and rhythm with a normal S1 and S2. No gallops, murmurs, or rubs. No pulse deficits. Respiratory: Respirations even and unlabored. No increased work of breathing. Talking in full sentences Skin: Warm, dry with normal turgor. Normal color. MS/ Extremity: Pulses equal, no cyanosis. Neurovascular intact. Full, normal range of motion. Neuro: Awake and alert, GCS 15, oriented to person, place, time, and situation. Moves all extremities. Normal gait. Psych: Awake, alert, with orientation to person, place and time. Behavior, mood, and affect are within normal limits. 20:21 Abdomen/GI: Inspection: abdomen appears normal, Bowel sounds: normal, in all quadrants, Palpation: soft, in all quadrants, moderate abdominal tenderness, in the right lower quadrant. 20:21 Back: CVA tenderness, that is moderate, is noted on the right. Vital Signs: 18:58 BP 123 / 93; Pulse 81; Resp 17 S; Temp 98.9(TE); Pulse Ox 100% on R/A; Weight 57.15 kg jd3 (R); Height 5 ft. 3 in. (160.02 cm) (R); Pain 10/10; 18:58 Body Mass Index 22.32 (57.15 kg, 160.02 cm) jd3 MDM: 19:12 Patient medically screened. kb 20:21 Data reviewed: vital signs, nurses notes. Data interpreted: Pulse oximetry: on room air kb is 100 %. Interpretation: normal. 21:11 Counseling: I had a detailed discussion with the patient and/or guardian regarding: the kb historical points, exam findings, and any diagnostic results supporting the discharge/admit diagnosis, lab results, radiology results, the need for outpatient follow up, a family practitioner, to return to the emergency department if symptoms worsen or persist or if there are any questions or concerns that arise at home. 09/06 19:00 Order name: Basic Metabolic Panel; Complete Time: 20:27 d3 09/06 19:00 Order name: CBC with Diff; Complete Time: 19:21 jd3 09/06 19:00 Order name: Hepatic Function; Complete Time: 20:27 jd3 09/06 19:00 Order name: Lipase; Complete Time: 20:27 jd3 09/06 19:00 Order name: Urine Microscopic Only; Complete Time: 20:00 d3 09/06 19:12 Order name: Urine Dipstick-Ancillary; Complete Time: 19:13 EDMS 09/06 19:00 Order name: IV Saline Lock; Complete Time: 19:11 jd3 09/06 19:13 Order name: CT Stone Protocol; Complete Time: 20:35 kb 09/06 19:33 Order name: Urine Culture [facility] 09/06 19:00 Order name: Labs collected and sent; Complete Time: 19:11 jd3 09/06 19:00 Order name: Urine Dipstick-Ancillary (obtain specimen); Complete Time: 20:51 j Administered Medications: 21:02 Drug: NS 0.9% 1000 ml Route: IV; Rate: 1000 ml; Site: left antecubital; 5 21:02 Drug: Ketorolac 15 mg Route: IVP; Site: left antecubital; 5 21:02 Drug: Rocephin (cefTRIAXone) 1 grams Route: IV; Rate: calculated rate; Site: left sm5 antecubital; 21:02 Drug: Zofran (Ondansetron) 4 mg Route: IVP; Site: left antecubital; 5 Disposition: 09/07 07:13 Co-signature as Attending Physician, Girish Herzog MD I agree with the assessment and kdr plan of care. Disposition Summary: 09/06/21 21:25 Discharge Ordered Location: Home kb Condition: Stable kb Diagnosis - UTI/ Urinary tract infection, site not specified kb Followup: kb - With: Emergency Department - When: As needed - Reason: Worsening of condition Followup: kb - With: Private Physician - When: 2 - 3 days - Reason: Recheck today's complaints, Continuance of care, Re-evaluation by your physician Discharge Instructions: - Discharge Summary Sheet kb - Urinary Tract Infection, Adult, [id number] kb Forms: - Medication Reconciliation Form kb - Thank You Letter kb - Antibiotic Education kb - Prescription Opioid Use kb Prescriptions: - Macrobid 100 mg Oral Capsule - take 1 capsule by ORAL route every 12 hours for 10 days; 20 capsule; Refills: kb 0, Product Selection Permitted Signatures: Dispatcher [employer] [facility] Manju Mcguire, PULPER OPERATOR-C PULPER OPERATOR-Girish Connelly MD MD kdr Davies, Jonathon, RN RN jd3 Christine Velez RN RN sm5 Corrections: (The following items were deleted from the chart) 09/06 19:00 19:00 Urine Test ordered. [email or web address] jd3 19:28 19:01 Abdomen Pelvis W Con+CT.RAD.BRZ ordered. EDMS EDMS
[2021-09-06 22:27] VITALS: BP 123/93; TEMP 98.9; O2SAT 100
== END 2021-09-06 22:07 | disposition home or self-care (01) ==
LOC: ER 18:41
DX: N39.0 Urinary tract infection, site not specified (principal)
CPT/HCPCS: 36415; 74176; 76377; 80048; 80076; 81003; 81015; 83690; 85025; 87077; 87086; 87088; 87186; 96374; 96375; 99284; J2405; J7030

== ENCOUNTER → 2023-08-09 | Emergency (ER) | payer SELFPAY ==
[~2023-08-09] MED LIST: DIPHENHYDRAMINE 50 MG/ML VIAL ONE; KETOROLAC 30 MG/ML INJ ONE; METOCLOPRAMIDE 10 MG/2mL INJ ONE; NA CHLORIDE 0.9% 1,000 ML ONE; ONDANSETRON 4 MG/2 ML VIAL ONE
--- NOTE | 2023-08-09 14:04 | RAD REPORT ---
[facility] CLINICAL HISTORY: CHEST PAIN COMPARISON: Chest Pa And Lat (2 Views) dated 09/22/2019 TECHNIQUE: Portable AP view of the chest. FINDINGS: The lungs are clear. No pneumothorax or effusion. The cardiomediastinal contours are unre markable. IMPRESSION: No acute cardiopulmonary process.
[2023-08-09 14:53] LABS: Absolute Lymphocytes (CBC) 1.4 K/uL (0.7-4.9); Hematocrit 38.8 % (36.0-45.0); Lymphocytes % 21.1 % (15.3-44.8); MCV 95.2 fL (80-100); MPV 7.7 fL (7.6-11.3); Platelets 191 thou/uL (152-406); RBC Red Blood Cell Count 4.07 M/uL (3.86-4.86)
[2023-08-09 15:02] LABS: SARS-CoV-2 Antigen Rapid Res Negative (Negative)
[2023-08-09 15:09] LABS: ALT/SGPT 17 U/L (13-56); AST/SGOT 12 U/L (15-37); Albumin 3.9 g/dL (3.4-5.0); Alkaline Phosphatase 51 U/L (45-117); BUN Blood Urea Nitrogen 15 mg/dL (7-18); Bicarbonate 25 mEq/L (21-32); Bilirubin Direct 0.1 mg/dL (0-0.2); Bilirubin Indirect, Calculated 0.4 mg/dL (0.2-0.8); Bilirubin Total 0.5 mg/dL (0.2-1.0); Glomerular Filtration Rate 124 ml/min (=/>90); Glucose Level 84 mg/dL (74-106); Magnesium 2.2 mg/dL (1.6-2.4); Potassium 3.8 mEq/L (3.5-5.1); Protein, Total 7.5 g/dL (6.4-8.2); Sodium Level 136 mEq/L (136-145)
[2023-08-09 15:11] LABS: Troponin High Sensitivity < 3.0 pg/mL (<58.9)
--- NOTE | 2023-08-09 17:02 | EDPHYS ---
Physician Documentation [facility] Name: Anisa Mack Age: 27 yrs Sex: Female : 1995 Arrival Date: 08/09/2023 Time: 13:04 Bed 15 Private MD: ED Physician Maurilio Ortega HPI: 08/09 13:16 This 27 yrs old Female presents to ER via Ambulatory with complaints of Chest sb4 Pain, Nausea. 13:16 The patient or guardian reports chest pain that is located primarily in the anterior sb4 chest wall, left. The pain does not radiate. Associated signs and symptoms: Pertinent positives: nausea, headache, Pertinent negatives: cough, lightheadedness, palpitations, recent travel, shortness of breath, syncope. Duration: The patient or guardian reports multiple episodes, approximately 3 episodes since symptom onset, with no pattern. Modifying factors: The symptoms are alleviated by rest, the symptoms are aggravated by deep breath. The patient has not experienced similar symptoms in the past. The patient has not recently seen a physician. Historical: - Allergies: 13:16 No Known Allergies; ko1 - Home Meds: 13:16 None [Active]; ko1 - PMHx: 13:16 None; ko1 - Immunization history:: Adult Immunizations unknown. - Social history:: Smoking status: Patient denies any tobacco usage or history of. ROS: 13:16 Constitutional: Negative for fever, chills, and weight loss, sb4 13:16 Cardiovascular: Positive for chest pain, 13:16 Abdomen/GI: Positive for nausea, 13:16 Neuro: Positive for headache, 13:16 All other systems are negative, Exam: 13:16 Constitutional: This is a well developed, well nourished patient who is awake, alert, sb4 and in no acute distress. Head/Face: Normocephalic, atraumatic. Eyes: Extra-ocular motions intact. Periorbital areas with no swelling, redness, or edema. ENT: Mucous membranes moist. Cardiovascular: Regular rate and rhythm with a normal S1 and S2. Respiratory: Lungs have equal breath sounds bilaterally, clear to auscultation and percussion. No rales, rhonchi or wheezes noted. No increased work of breathing, no retractions or nasal flaring. Abdomen/GI: Soft, non-tender, no distension. Skin: Warm, dry with normal turgor. Normal color with no rashes, no lesions, and no evidence of cellulitis. MS/ Extremity: Pulses equal, no cyanosis. Neurovascular intact. Full, normal range of motion. Neuro: Awake and alert, GCS 15, oriented to person, place, time, and situation. Motor strength 5/5 in all extremities. Sensory grossly intact. Vital Signs: 13:12 BP 108 / 80; Pulse 81; Resp 15; Temp 97; Pulse Ox 100% ; ko1 18:40 BP 100 / 6; Pulse 83; Resp 16; Pulse Ox 100% ; bp MDM: 13:10 Patient medically screened. sb4 13:16 Differential diagnosis: abnormal EKG, anxiety, chest wall pain, costochondritis, sb4 pleurisy, pulmonary embolus, covid, flu, bronchitis. 17:01 Data reviewed: vital signs, nurses notes, lab test result(s), EKG, radiologic studies, sb4 and as a result, I will discharge patient. Scoring Tools HEART Score: History: ECG: Age: Risk Factors: No Risk Factors Known (0), Troponin: Total Score = 0. Counseling: I had a detailed discussion with the patient and/or guardian regarding the historical points, exam findings, and any diagnostic results supporting the discharge/admit diagnosis, lab results, radiology results, the need for outpatient follow up, for definitive care, to return to the emergency department if symptoms worsen or persist or if there are any questions or concerns that arise at home. 08/09 13:16 Order name: Basic Metabolic Panel; Complete Time: 15:11 sb4 08/09 13:16 Order name: CBC with Diff; Complete Time: 15:11 sb4 08/09 13:16 Order name: D-Dimer; Complete Time: 14:55 sb4 08/09 13:16 Order name: LFT's; Complete Time: 15:11 sb4 08/09 13:16 Order name: Magnesium; Complete Time: 15:11 sb4 08/09 13:16 Order name: Troponin HS; Complete Time: 15:11 sb4 08/09 13:16 Order name: Flu; Complete Time: 15:35 sb4 08/09 13:16 Order name: SARS RAPID; Complete Time: 15:03 sb4 08/09 13:16 Order name: XRAY Chest (1 view); Complete Time: 14:05 sb4 08/09 13:16 Order name: EKG; Complete Time: 13:17 sb4 08/09 13:16 Order name: Cardiac monitoring; Complete Time: 13:59 sb4 08/09 13:16 Order name: EKG - Nurse/Tech; Complete Time: 13:59 sb4 08/09 13:16 Order name: IV Saline Lock; Complete Time: 14:36 sb4 08/09 13:16 Order name: Labs collected and sent; Complete Time: 14:36 sb4 08/09 13:16 Order name: O2 Per Protocol; Complete Time: 13:59 sb4 08/09 13:16 Order name: O2 Sat Monitoring; Complete Time: 13:59 sb4 EC:05 Rate is 76 beats/min. Rhythm is regular, Normal Sinus Rhythm. DE interval is normal at sb4 130 msec. QRS interval is normal at 82 msec. QT interval is normal at 420 msec. No Q waves. T waves are Normal. No ST changes noted. Clinical impression: Normal ECG. Interpreted by me. Reviewed by me. Administered Medications: 14:34 Drug: Ketorolac IVP 15 mg IVP once Route: IVP; Site: right antecubital; bp 18:41 Follow up: Response: No adverse reaction bp 14:34 Drug: Ondansetron IVP 4 mg IVP once; over 2 minutes Route: IVP; Site: right antecubital;bp 18:41 Follow up: Response: No adverse reaction bp 16:30 Drug: Ketorolac IVP 15 mg IVP once Route: IVP; Site: right antecubital; bp 18:41 Follow up: Response: No adverse reaction bp 16:30 Drug: metoCLOPramide IVP 10 mg IVP once; over 1 to 2 minutes Route: IVP; Site: right bp antecubital; 18:41 Follow up: Response: No adverse reaction bp 16:30 Drug: NS 0.9% IV 1000 ml IV at 1 bolus Per protocol; 1000 mL bolus Route: IV; Rate: 1 bp bolus; Site: right antecubital; 18:41 Follow up: IV Status: Completed infusion; IV Intake: 1000ml bp 16:30 Drug: diphenhydrAMINE IVP 12.5 mg IVP once Route: IVP; Site: right antecubital; bp 18:42 Follow up: Response: No adverse reaction bp Disposition Summary: 08/09/23 17:01 Discharge Ordered Notes: Location: Home sb4 Problem: new sb4 Symptoms: have improved sb4 Condition: Stable sb4 Diagnosis - Viral infection, unspecified sb4 Followup: sb4 - With: Emergency Department - When: As needed - Reason: Fever > 102 F, Trouble breathing, Worsening of condition Discharge Instructions: - Discharge Summary Sheet sb4 - Nonspecific Chest Pain, Adult, [id number]-[id number]-[id number] sb4 - General Headache Without Cause, Bwtg-sd-Fyhy sb4 Forms: - Medication Reconciliation Form sb4 - Thank You Letter sb4 - Antibiotic Education sb4 - Prescription Opioid Use sb4 - Patient Portal Instructions sb4 - Leadership Thank You Letter sb4 Prescriptions: - Zofran 4 mg Oral Tablet - take 1 tablet ORAL route every 12 hours As needed; 20 tablet; Refills: 0, sb4 Product Selection Permitted - Diclofenac Sodium 75 mg Oral Tablet Sustained Release - take 1 tablet ORAL route 2 times per day; 30 tablet; Refills: 0, Product sb4 Selection Permitted Addendum: 08/13/2023 08:33 Co-signature as Attending Physician, Maurilio Ortega MD I reviewed the patient's care r n provided by the Advanced Practice Provider and agree with the diagnosis and treatment plan. Signatures: Dispatcher [employer] EDMaurilio Michel MD MD rn Peltier, Brian RN Re Valentin RN RN ko1 Brown, Sophia, PA-C PA-C sb4
--- NOTE | 2023-08-09 17:02 | ER ---
Nurse's Notes [facility] Name: Anisa Mack Age: 27 yrs Sex: Female : 1995 Arrival Date: 08/09/2023 Time: 13:04 Bed 15 Private MD: Diagnosis: Viral infection, unspecified Presentation: 08/09 13:12 Chief complaint: Patient states: woke up about 3am with chest pain, it went away but ko1 came back. Hurts more to breathe. nauseated and headache. Coronavirus screen: At this time, the client does not indicate any symptoms associated with coronavirus-19. Ebola Screen: No symptoms or risks identified at this time. Initial Sepsis Screen: Does the patient meet any 2 criteria? No. Patient's initial sepsis screen is negative. Does the patient have a suspected source of infection? No. Patient's initial sepsis screen is negative. Risk Assessment: Do you want to hurt yourself or someone else? Patient reports no desire to harm self or others. Onset of symptoms was August 09, 2023. 13:12 Method Of Arrival: Ambulatory ko1 13:12 Acuity: JOSE MIGUEL 3 ko1 Triage Assessment: 13:16 General: Appears in no apparent distress. Behavior is calm, cooperative, appropriate ko1 for age. Pain: Complains of pain in anterior aspect of left upper chest. Cardiovascular: Reports chest pain, nausea. Historical: - Allergies: 13:16 No Known Allergies; ko1 - Home Meds: 13:16 None [Active]; ko1 - PMHx: 13:16 None; ko1 - Immunization history:: Adult Immunizations unknown. - Social history:: Smoking status: Patient denies any tobacco usage or history of. Screenin:04 [facility] ED Fall Risk Assessment (Adult) History of falling in the last 3 months, bp including since admission No falls in past 3 months (0 pts). Abuse screen: Denies threats or abuse. Denies injuries from another. Nutritional screening: No deficits noted. Tuberculosis screening: No symptoms or risk factors identified. Assessment: 18:04 Reassessment: DC ON HOLD FOR IVF. bp Vital Signs: 13:12 BP 108 / 80; Pulse 81; Resp 15; Temp 97; Pulse Ox 100% ; ko1 18:40 BP 100 / 6; Pulse 83; Resp 16; Pulse Ox 100% ; bp ED Course: 13:07 Patient arrived in ED. ts1 13:07 Masha Stein PA-C is [facility]. sb4 13:07 Maurilio Ortega MD is Attending Physician. sb4 13:16 Triage completed. ko1 13:16 Arm band placed on right wrist. Patient placed in waiting room, Patient notified of ko1 wait time. 13:49 XRAY Chest (1 view) In Process Unspecified. EDMS 13:49 Amos Ibarra, SUGAR is Primary Nurse. bp 14:35 Inserted saline lock: 22 gauge in right antecubital area, using aseptic technique. bp Blood collected. 18:04 Patient has correct armband on for positive identification. bp 18:40 No provider procedures requiring assistance completed. IV discontinued, intact, bp bleeding controlled, No redness/swelling at site. Pressure dressing applied. Patient maintains SpO2 saturation greater than 95% on room air. Administered Medications: 14:34 Drug: Ketorolac IVP 15 mg IVP once Route: IVP; Site: right antecubital; bp 18:41 Follow up: Response: No adverse reaction bp 14:34 Drug: Ondansetron IVP 4 mg IVP once; over 2 minutes Route: IVP; Site: right antecubital;bp 18:41 Follow up: Response: No adverse reaction bp 16:30 Drug: Ketorolac IVP 15 mg IVP once Route: IVP; Site: right antecubital; bp 18:41 Follow up: Response: No adverse reaction bp 16:30 Drug: metoCLOPramide IVP 10 mg IVP once; over 1 to 2 minutes Route: IVP; Site: right bp antecubital; 18:41 Follow up: Response: No adverse reaction bp 16:30 Drug: NS 0.9% IV 1000 ml IV at 1 bolus Per protocol; 1000 mL bolus Route: IV; Rate: 1 bp bolus; Site: right antecubital; 18:41 Follow up: IV Status: Completed infusion; IV Intake: 1000ml bp 16:30 Drug: diphenhydrAMINE IVP 12.5 mg IVP once Route: IVP; Site: right antecubital; bp 18:42 Follow up: Response: No adverse reaction bp Intake: 18:41 IV: 1000ml; Total: 1000ml. bp Outcome: 17:01 Discharge ordered by MD. sb4 18:40 Discharged to home ambulatory, with family, bp 18:40 Condition: stable 18:40 Discharge instructions given to patient, Instructed on discharge instructions, follow up and referral plans. medication usage, Demonstrated understanding of instructions, follow-up care, medications, Prescriptions given X 2, 18:42 Patient left the ED. bp Signatures: Dispatcher [employer] EDAmos Ribeiro RN RN bp Re Mckee RN RN [email or web address] Masha Stein, PACompaC PACompaC sb4 Daniela Mackenzie PAS PAS ts1
[2023-08-09 20:19] VITALS: BP 100/6; TEMP 97; O2SAT 100
== END ==
LOC: ER 13:04
DX: B34.9 Viral infection, unspecified (principal); Z11.52 Encounter for screening for COVID-19
CPT/HCPCS: 36415; 71045; 80048; 80076; 83735; 84484; 85025; 85379; 87804; 87811; 96361; 96374; 96375; 99285; J1200; J2405; J2765; J7030

== ENCOUNTER 2023-12-05 18:55 | Emergency (ER) | payer OTHER ==
[2023-12-05] MEDS ORDERED: KETOROLAC 30 MG/ML INJ ONE (19:21)
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
[2023-12-06 05:55] VITALS: BP 104/79; TEMP 97.8; O2SAT 99
== END 2023-12-05 21:03 | disposition home or self-care (01) ==
LOC: ER 18:55
DX: S16.1XXA Strain of muscle, fascia and tendon at neck level, initial encounter (principal); V49.49XA Driver injured in collision with other motor vehicles in traffic accident, initial encounter
CPT/HCPCS: 70450; 72125; 96372; 99284